=== PATIENT | female | born 1980 | race Caucasian/White ===

== ENCOUNTER → 2017-05-29 | Outpatient (CLI) | payer OTHER, BC ==
[~2017-05-29] MED LIST: IOHEXOL 300 MG/ML 75 ML VIAL. IV ONE
--- NOTE | 2017-05-29 14:37 | RAD ---
CT neck with contrast 05/29/2017 Indication: Neck fullness Comparison: None available Technique: Multiple axial CT images of the neck were obtained after the administration of 75 mL of Omnipaque 300 intravenously. Coronal and sagittal reformats are provided. Findings: Visualized portions of the brain parenchyma and si[place] of [place] are normal. Orbits and ocular muscles are normal. Paranasal sinuses and mastoid air cells are well aerated. Subcentimeter lymph nodes are noted throughout the neck, none of which are pathologically enlarged or enhancing. Upper And Bottom Lacer Hand space is normal. Carotid space is normal. Pericardial fat is preserved. Nasopharynx, oropharynx and hypopharynx are normal. Epiglottis, vallecula and perform sinuses are normal. Larynx is normal. Cartilaginous structures are intact. Neck vessels are normal in course and caliber. Visualized portions of the lung apices are normal. No significant cervical spondylosis. Impression: 1. No pathologically enlarged cervical lymph nodes. No significant abnormality identified in the neck. PQRS Compliance Statement: One or more of the following individualized dose reduction techniques were utilized for this examination: 1. Automated exposure control 2. Adjustment of the mA and/or kV according to patient size 3. Use of iterative reconstruction technique
== END | disposition home or self-care (01) ==
LOC: CT 12:45
PROVIDERS: ATTEND Family Medicine
DX: R22.1 Localized swelling, mass and lump, neck (principal); M54.2 Cervicalgia; R29.898 Other symptoms and signs involving the musculoskeletal system
CPT/HCPCS: 70491; Q9967

== ENCOUNTER → 2017-08-12 | Outpatient (CLI) | payer OTHER, BC ==
--- NOTE | 2017-08-12 10:19 | RAD ---
Chest, 2 views, 08/12/2017: History: Dyspnea, chest pain The heart size and pulmonary vascularity are normal. No pulmonary infiltrates are seen. There is no evidence of pleural fluid. IMPRESSION: No acute cardiopulmonary abnormality is detected.
--- NOTE | 2017-08-12 10:37 | RAD ---
Lumbar spine, 3 views, 08/12/2017: History: Leg paresthesias, low back pain The lumbar vertebral heights and intervertebral disc spaces are well preserved. There are minimal scattered marginal spurs. The paraspinous soft tissues are unremarkable. IMPRESSION: 1. Minimal marginal spurring. 2. No acute abnormality is detected.
== END | disposition home or self-care (01) ==
LOC: DXRAD 09:56
PROVIDERS: ATTEND Family Medicine
DX: M53.86 Other specified dorsopathies, lumbar region (principal); R06.00 Dyspnea, unspecified; R20.2 Paresthesia of skin; R05 Cough
CPT/HCPCS: 71020; 72100

== ENCOUNTER → 2017-08-19 | Outpatient (CLI) | payer OTHER, BC ==
--- NOTE | 2017-08-19 15:20 | RAD ---
Transabdominal pelvic ultrasound. 08/19/2017 Indication: Pelvic pain. Comparison study: None Discussion: Transabdominal imaging of the pelvis was performed. Static images are submitted for PACS. Patient refused a transvaginal exam. The uterus is grossly unremarkable in appearance measuring 11.4 x 6.1 x 3.9 cm. No focal uterine lesions are identified transabdominally. The endometrium appears to be non thickened measuring approximately 4 mm in diameter. Right ovary measures approximately 2.8 x 2.9 x 2.6 cm. Left ovary measures 3.1 x 2.7 x 2.3 cm. Blood flow to the bilateral ovaries appear to be present on color Doppler imaging with spectral analysis. Limited visualization of the bladder is unremarkable. Impression: Unremarkable transabdominal pelvic ultrasound
== END | disposition home or self-care (01) ==
LOC: US 09:38
PROVIDERS: ATTEND Family Medicine
DX: R10.2 Pelvic and perineal pain (principal)
CPT/HCPCS: 76856